=== PATIENT | female | born 1995 | race Two or more races ===

== ENCOUNTER 2024-09-04 10:42 | Emergency (ER) | payer BC ==
[~2024-09-04] VITALS: Ht 175.3 cm; Wt 60.8 kg
[2024-09-04 11:45] LABS: *URINE HCG, QUAL NEGATIVE (NEGATIVE)
[2024-09-04] MEDS ORDERED: METOCLOPRAMIDE HCL 10 MG/2 ML VIAL ONE (11:56)
[2024-09-04] MEDS ORDERED: diphenhydrAMINE 50 MG/1 ML VIAL ONE (11:56)
[2024-09-04] MEDS ORDERED: KETOROLAC TROMETHAMINE 30 MG INJ ONE (12:01)
[2024-09-04] MEDS: KETOROLAC TROMETHAMINE 30 MG INJ IVP ONE (12:12)
[2024-09-04] MEDS: METOCLOPRAMIDE HCL 10 MG/2 ML VIAL IV ONE (12:12)
[2024-09-04] MEDS: IV NS 1000 ML 1,000 ML IV ONE (12:12)
[2024-09-04] MEDS: diphenhydrAMINE 50 MG/1 ML VIAL IV ONE (12:12)
[2024-09-04] MEDS ORDERED: DIPH25CA83 PO (12:16)
[2024-09-04] MEDS ORDERED: METO-295 PO (12:16)
[2024-09-04] MEDS ORDERED: NAPR500T6 PO (12:16)
[2024-09-04 12:59] VITALS: BP 127/89; O2SAT 100
== END 2024-09-04 13:10 | disposition home or self-care (01) ==
LOC: ER 10:42
DX: G43.909 Migraine, unspecified, not intractable, without status migrainosus (principal); R11.2 Nausea with vomiting, unspecified
CPT/HCPCS: 99284; 96374; 96375; 96361; 84703; J1885; J1200; J2765; J7040; A4606; A4663